=== PATIENT | male | born 1975 | race Caucasian/White ===

== ENCOUNTER → 2021-12-03 | Outpatient (CLI) | payer BC ==
--- NOTE | 2021-12-03 12:37 | MR ---
EXAMINATION TYPE: MR brain wo/w con DATE OF EXAM: 12/03/2021 COMPARISON: 07/27/2009 HISTORY: 46-year-old male G81.91, hemiplegia, Tingling of left back side of head, and right arm weakn ess, family history of brain tumors. TECHNIQUE: Multiplanar, multisequence images of the brain and brainstem were acquired before and aft er administration of 8 mL IV Gadavist. Diffusion weighted imaging is performed. FINDINGS: No evidence for acute infarction, hemorrhage, mass, mass effect, midline shift, herniation, effacemen t of basal cisterns, or extra-axial fluid collection. The ventricles and sulci are age-appropriate. Major intracranial flow voids are intact. T2/FLAIR weighted sequences show a solitary nonspecific 3 mm right white matter focus anterior right subinsular region, likely normal age-related change, unchanged from 2009. Midline structures demonstrate normal morphology. The craniocervical junction is normal. Post contrast images demonstrate no evidence of pathologic enhancement. Dural venous sinuses are pat ent. Moderate mucosal thickening ethmoid air cells and mild within the frontal and maxillary sinuses. Ther e is scattered fluid trapped in the left-sided mastoid air cells. Globes are intact. IMPRESSION: 1. No discrete intracranial abnormality or enhancing lesion is seen. 2. Mild chronic paranasal sinus disease, more moderate within the ethmoid air cells. 3. Scattered fluid within the left-sided mastoid air cells. Correlate for any mastoid pain to exclude mastoiditis.
== END | disposition home or self-care (01) ==
LOC: RADMRIMAIN 10:33
PROVIDERS: ATTEND Family Medicine
DX: J32.8 Other chronic sinusitis (principal)
CPT/HCPCS: 70553; A9585

== ENCOUNTER → 2022-12-12 | Outpatient (CLI) | payer BC ==
[2022-12-12 18:20] LABS: Basophils # (A) 0.03 X 10*3/uL (0.00-0.10); Basophils % (A) 0.3 %; Eosinophils # (A) 0.09 X 10*3/uL (0.04-0.35); HCT 44.9 % (39.6-50.0); HGB 15.6 d/dL (13.0-17.0); Lymphocytes # (A) 2.15 X 10*3/uL (0.90-5.00); Lymphocytes % (A) 22.9 %; MCH 29.7 pg (27.0-32.0); MCHC 34.7 d/dL (32.0-37.0); MCV 85.5 FL (80.0-97.0); Mean Platelet Volume 10.4 FL (9.5-12.2); Monocytes # (A) 0.92 X 10*3/uL (0.20-1.00); Monocytes % (A) 9.8 %; NRBC Per 100 WBC 0 X 10*3/uL (0.00-0.01); Neutrophils # (A) 6.16 X 10*3/uL (1.80-7.70); Neutrophils % (A) 65.8 %; Platelet Count 237 X 10*3/uL (140-440); RBC 5.25 X 10*6/uL (4.40-5.60); RDW 13.3 % (11.5-14.5); WBC 9.37 X 10*3/uL (4.50-10.00)
== END | disposition home or self-care (01) ==
LOC: LABPAT 10:46
PROVIDERS: ATTEND Surgery
DX: Z01.812 Encounter for preprocedural laboratory examination (principal); K40.90 Unilateral inguinal hernia, without obstruction or gangrene, not specified as recurrent; I45.4 Nonspecific intraventricular block; R94.31 Abnormal electrocardiogram [ECG] [EKG]
CPT/HCPCS: 85025; 86850; 86900; 86901; 93005

== ENCOUNTER 2022-12-22 12:46 | Day surgery (SDC) | payer BC ==
[2022-12-18 15:22] VITALS: BMI 27.3
[~2022-12-22 12:46] MED LIST: LACTATED RINGERS 1,000 ML IV SCH
[2022-12-22 13:18] VITALS: TEMP 97.7
[2022-12-22] MEDS ORDERED: PROPOFOL 10 MG/ML 20 ML VIAL IV ONE (14:09)
--- NOTE | 2022-12-22 14:11 | P.GSHP ---
History of Present Illness H&P Date: 12/22/22 Chief Complaint: Screening colonoscopy This a 47-year-old male been safe for screening colonoscopy. Patient has some complaints of dysuria. States he has had poor urinary stream. He's had some minimal complaints of lower quadrant pain. Past Medical History Past Medical History: No Reported History History of Any Multi-Drug Resistant Organisms: None Reported Additional Past Surgical History / Comment(s): PFO CLOSURE Past Anesthesia/Blood Transfusion Reactions: No Reported Reaction Past Psychological History: No Psychological Hx Reported Smoking Status: Never smoker Past Alcohol Use History: Occasional Past Drug Use History: None Reported Medications and Allergies Home Medications Medication Instructions Recorded Confirmed Type No Known Home Medications 12/18/22 12/22/22 History Allergies Allergy/AdvReac Type Severity Reaction Status Date / Time No Known Allergies Allergy Verified 12/22/22 13:14 Surgical - Exam Vital Signs Temp Pulse Resp BP Pulse Ox 97.7 F 83 17 130/73 97 12/22/22 13:14 12/22/22 13:14 12/22/22 13:14 12/22/22 13:14 12/22/22 13:14 - General well developed, well nourished, no distress - Eyes PERRL - ENT normal pinna - Neck no masses - Respiratory normal expansion - Cardiovascular Rhythm: regular - Abdomen Abdomen: soft, non tender Assessment and Plan Assessment: We'll perform screening colonoscopy
--- NOTE | 2022-12-22 14:24 | P.OP ---
Date of Procedure: 12/22/22 Preoperative Diagnosis: Screening colonoscopy Postoperative Diagnosis: Diverticulosis Procedure(s) Performed: Colonoscopy Anesthesia: MAC Surgeon: Kamari Beasley Pathology: none sent Condition: stable Disposition: PACU Description of Procedure: The patient's placed on the endoscopy table in the lateral position. He received IV sedation. Digital rectal exam performed. This revealed no ebonized. The flexible colonoscope was then placed patient anus passed throughout the entire colon. The ileocecal valve was visualized. The cecum, ascending and transverse colon appeared normal. The descending and sigmoid had mild diverticular changes. The scope was then brought back the rectum and this appeared normal. Scope withdrawn for patient.
[2022-12-22 14:53] VITALS: BP 108/70; PULSE 60; RESP 18
== END 2022-12-22 14:54 | disposition home or self-care (01) ==
LOC: ORWHC2ENDO 12:46
PROVIDERS: ATTEND Surgery
DX: Z12.11 Encounter for screening for malignant neoplasm of colon (principal)
CPT/HCPCS: 45378; J2704

== ENCOUNTER 2023-01-06 06:54 | Day surgery (SDC) | payer BC ==
[2023-01-02 09:35] VITALS: BMI 27.4
[~2023-01-06 06:54] MED LIST changes: +ACETAMINOPHEN TAB 500 MG TAB PO PRN; +DEXAMETHASONE SOD PHOSPHATE 4 MG/ML 1 ML VIAL IV ONE; +HEPARIN SODIUM,PORCINE/PF 5,000 UNIT/0.5 ML SYRINGE SQ PRN; +ONDANSETRON 4 MG/2 ML VIAL IVP ONE
[2023-01-06] MEDS ORDERED: HYDROmorphone 0.5 MG/0.5 ML SYRINGE IVP PRN (07:00)
[2023-01-06] MEDS ORDERED: SCOPOLAMINE 1 MG/72 HR PATCH TRANSDERM ONE (08:14)
[2023-01-06] MEDS ORDERED: ROCURONIUM 10 MG/ML (5 ML VIAL) IV ONE (08:42)
[2023-01-06] MEDS ORDERED: GLYCOPYRROLATE 0.2 MG/ML 2 ML VIAL ONE (08:42)
[2023-01-06] MEDS ORDERED: KETAMINE HCL IN 0.9 % NACL 50 MG/5 ML SYRINGE ONE (08:42)
[2023-01-06] MEDS ORDERED: NEOSTIGMINE 1 MG/ML 10 ML VIAL ONE (08:42)
[2023-01-06] MEDS ORDERED: PROPOFOL 10 MG/ML 20 ML VIAL IV ONE (08:42)
[2023-01-06] MEDS ORDERED: KETOROLAC 30 MG/ML 1 ML VIAL ONE (08:42)
[2023-01-06] MEDS ORDERED: LIDOCAINE 1% INJ 10MG/ML (20 ML MDV) ONE (08:42)
[2023-01-06] MEDS ORDERED: MIDAZOLAM 2 MG/2 ML VIAL ONE (08:42)
[2023-01-06] MEDS ORDERED: SUCCINYLCHOLINE CHLORIDE 200 MG/10 ML VIAL IV ONE (08:42)
[2023-01-06] MEDS ORDERED: fentaNYL (PF) 50 MCG/ML 2 ML AMP ONE (08:42)
[2023-01-06] MEDS ORDERED: HYDROmorphone (PF) 1 MG/ML ONE (08:42)
[2023-01-06] MEDS ORDERED: LIDOCAINE 2%-EPI 1:100,000 20 ML VIAL SQ ONE (09:09)
[2023-01-06] MEDS ORDERED: LACTATED RINGERS 1,000 ML IV ONE (09:40)
--- NOTE | 2023-01-06 09:55 | P.OP ---
Date of Procedure: 01/06/23 Preoperative Diagnosis: Left inguinal hernia Postoperative Diagnosis: Left inguinal hernia Procedure(s) Performed: Laparoscopic robotic-assisted repair of left inguinal hernia Transversus abdominis plane block Excision of cord lipoma Anesthesia: DEWEY Surgeon: Kamari Beasley Estimated Blood Loss (ml): 5 Pathology: other (Cord lipoma) Condition: stable Disposition: PACU Description of Procedure: The patient's placed on the operating table in the supine position. The patient received general anesthesia. The patient's abdomen was prepped and draped in usual sterile fashion. The skin was anesthetized 1% local Xylocaine at the incision sites. Using an 11 blade a skin incision was made at the umbilicus. The fascia was grasped with a Herman and then the peritoneal cavity was entered with the Veress needle. Position of the Veress needle was confirmed with a positive drop test. After adequate insufflation a 5 mm trocar was placed into the peritoneal cavity. The Laparoscope was placed the peritoneal cavity. And a robotic 8 mm trocar was placed in the right lateral position and then another 8 mm robotic trochars placed in the left lateral position. The original 5 mm trocar was exchanged for a 12 mm trocar. A four-quadrant transverse subcostal block was performed 1% local Xylocaine. The patient was placed in reverse Trendelenburg and then the patient was docked to the robot. Next the peritoneum over top of the hernia was incised and then using blunt and sharp dissection and electrocautery the hernia sac was dissected free from the floor of the inguinal canal. The cord lipoma was dissected free sent to pathology. The hernia sac was completely reduced into the peritoneal cavity. And then using the [employer] general laborer mesh the hernia was repaired. The peritoneum was then sutured with 20V lock suture. The patient was then undocked the robot. The needle was withdrawn from the peritoneal cavity. The umbilical trocar site was closed with 0 Ethibond suture. The skin was closed interrupted 3-0 Monocryl suture. Dermabond dressing was applied. Patient was sent to recovery in stable condition.
[2023-01-06 10:21] VITALS: RESP 16; TEMP 97
[2023-01-06 11:52] VITALS: BP 128/80; PULSE 70
== END 2023-01-06 11:44 | disposition home or self-care (01) ==
LOC: OR 06:54
PROVIDERS: ATTEND Surgery
DX: K40.90 Unilateral inguinal hernia, without obstruction or gangrene, not specified as recurrent (principal); D17.1 Benign lipomatous neoplasm of skin and subcutaneous tissue of trunk; Z98.890 Other specified postprocedural states
CPT/HCPCS: 49650; 64488; S2900; 88304; 88305